=== PATIENT | male | born 1980 | race Caucasian/White ===

== ENCOUNTER 2022-04-07 07:25 | Observation (INO) | payer OTHER ==
[~2022-04-07] VITALS: Ht 172.7 cm; Wt 100.3 kg
[2022-04-07 08:06] LABS: HEMOGLOBIN 11.9 gm/dl (14.0-17.5); RED BLOOD COUNT 3.7 M/UL (4.20-5.50); WHITE BLOOD COUNT 12.5 K/UL (4.5-11.0)
[2022-04-07 08:46] LABS: BUN/CREATININE RATIO 21 (0-10)
[2022-04-07] MEDS ORDERED: ZYLOPRIM 100 M100 MG PO (17:15)
[2022-04-07] MEDS ORDERED: BENTYL 20MG TAB20 MG PO (17:17)
[2022-04-07] MEDS ORDERED: WELLBUTRIN XL300 MG PO (17:17)
[2022-04-07] MEDS ORDERED: ELIQUIS5 MG PO (17:18)
[2022-04-07] MEDS ORDERED: HYDROCHLOROTH12.5 M1 PO (17:19)
[2022-04-07] MEDS ORDERED: COZAAR50 MG PO (17:19)
[2022-04-07] MEDS ORDERED: SEROQUEL400 MG PO (17:21)
[2022-04-08] MEDS ORDERED: IBUPROFEN600 MG PO ×2 (10:53→11:14)
[2022-04-08] MEDS ORDERED: BACTRIM DS TAB1 EACH PO ×2 (10:54→11:14)
[2022-04-08] MEDS ORDERED: COZAAR50 MG PO (11:14)
[2022-04-08] MEDS ORDERED: ZYLOPRIM 100 M100 MG PO (11:14)
[2022-04-08] MEDS ORDERED: ELIQUIS5 MG PO (11:14)
[2022-04-08] MEDS ORDERED: BENTYL 20MG TAB20 MG PO (11:14)
[2022-04-08] MEDS ORDERED: WELLBUTRIN XL300 MG PO (11:14)
[2022-04-08] MEDS ORDERED: HYDROCHLOROTH12.5 M1 PO (11:14)
[2022-04-08] MEDS ORDERED: SEROQUEL400 MG PO (11:14)
== END 2022-04-08 13:33 | disposition home or self-care (01) ==
LOC: ER1 07:25 → CDU 09:42 → M/S 09:42
PROVIDERS: Emergency Medicine; ADMIT Surgery
DX: R40.4 Transient alteration of awareness (principal); M62.82 Rhabdomyolysis; S91.011A Laceration without foreign body, right ankle, initial encounter; V89.2XXA Person injured in unspecified motor-vehicle accident, traffic, initial encounter
CPT/HCPCS: 70450; 71045; 71260; 72125; 72170; 73590; 73610; 73620; 80053; 80307; 81001; 82550; 82553; 83605; 84484; 85025; 85610; 85730; 90715; 93005; G0378; G0480; J1956; J2060; Q9967

== ENCOUNTER 2022-04-11 00:12 | Emergency (ER) | payer OTHER ==
[~2022-04-11 00:12] MED LIST: BACTRIM DS TAB1 EACH PO; BENTYL 20MG TAB20 MG PO; COZAAR50 MG PO; ELIQUIS5 MG PO; HYDROCHLOROTH12.5 M1 PO; IBUPROFEN600 MG PO; SEROQUEL400 MG PO; WELLBUTRIN XL300 MG PO; ZYLOPRIM 100 M100 MG PO
[2022-04-11] MEDS ORDERED: BACTROBAN OINT22 GM EXT (01:30)
== END 2022-04-11 01:39 | disposition home or self-care (01) ==
LOC: ER1 00:12
DX: M79.661 Pain in right lower leg (principal)
CPT/HCPCS: 99283

== ENCOUNTER 2022-04-27 19:21 | Emergency (ER) | payer OTHER ==
[~2022-04-27 19:21] MED LIST changes: +BACTROBAN OINT22 GM EXT
[2022-04-27] MEDS ORDERED: BACTRIM 400-801 EACH PO (20:38)
== END 2022-04-27 21:00 | disposition home or self-care (01) ==
LOC: ER1 19:21
DX: S81.801A Unspecified open wound, right lower leg, initial encounter (principal); L08.9 Local infection of the skin and subcutaneous tissue, unspecified; X58.XXXA Exposure to other specified factors, initial encounter
CPT/HCPCS: 99283

== ENCOUNTER 2022-05-24 20:52 | Emergency (ER) | payer OTHER ==
[~2022-05-24 20:52] MED LIST changes: +BACTRIM 400-801 EACH PO
[2022-05-24] MEDS ORDERED: MORGIDOX100 MG PO (22:28)
== END 2022-05-24 22:37 | disposition home or self-care (01) ==
LOC: ER1 20:52
DX: S81.831A Puncture wound without foreign body, right lower leg, initial encounter (principal); F17.200 Nicotine dependence, unspecified, uncomplicated; W45.0XXA Nail entering through skin, initial encounter; Y92.009 Unspecified place in unspecified non-institutional (private) residence as the place of occurrence of the external cause
CPT/HCPCS: 73590; 99283